=== PATIENT | male | born 1960 | race Caucasian/White ===

== ENCOUNTER → 2018-02-20 12:19 | Outpatient (CLI) | payer OTHER, SELFPAY ==
--- NOTE | 2018-02-20 | DI.RAD.S_ITS ---
PROCEDURE: FL WRIST INJECTION MR/CT LT INDICATIONS: BILATERAL WRIST PAIN TECHNIQUE: After informed consent had been obtained, the wrist was examined fluoroscopically, and a site chosen for injection of the radiocarpal compartment from a dorsal approach. Skin was prepped and draped in a sterile fashion and 1% lidocaine infiltrated from the skin down to the articular surface. A hypodermic needle was then introduced into the articular space and a modest amount of contrast medium was instilled confirming intra-articular needle tip placement. This was followed by approximately 4 mL of a dilute gadolinium solution. Needle was removed and dressing was applied. The patient experienced no complications throughout the procedure and left the fluoroscopic suite in no apparent distress. FINDINGS: A single fluoroscopic spot image demonstrates intra-articular location to injected iodinated contrast. IMPRESSION: Successful fluoroscopic-guided administration of dilute Gadolinium solution for wrist MR arthrogram. Dictated by: Shashank Nuñez M.D. on 02/20/2018 at 15:06 Approved by: Shashank Nuñez M.D. on 02/20/2018 at 15:07
--- NOTE | 2018-02-20 | DI.RAD.S_ITS ---
PROCEDURE: FL WRIST INJECTION MR/CT RT INDICATIONS: BILATERAL WRIST PAIN TECHNIQUE: After informed consent had been obtained, the wrist was examined fluoroscopically, and a site chosen for injection of the radiocarpal compartment from a dorsal approach. Skin was prepped and draped in a sterile fashion and 1% lidocaine infiltrated from the skin down to the articular surface. A hypodermic needle was then introduced into the articular space and a modest amount of contrast medium was instilled confirming intra-articular needle tip placement. This was followed by approximately 4 mL of a dilute gadolinium solution. Needle was removed and dressing was applied. The patient experienced no complications throughout the procedure and left the fluoroscopic suite in no apparent distress. FINDINGS: A single fluoroscopic spot image demonstrates intra-articular location to injected iodinated contrast. IMPRESSION: Successful fluoroscopic-guided administration of dilute Gadolinium solution for wrist MR arthrogram. Dictated by: Shashank Nuñez M.D. on 02/20/2018 at 15:05 Approved by: Shashank Nuñez M.D. on 02/20/2018 at 15:06
--- NOTE | 2018-02-20 | DI.MRI.S_ITS ---
PROCEDURE: MR WRIST RT W CON INDICATIONS: BILATERAL WRIST PAIN TECHNIQUE: After the administration of 3-4 mL of dilute intra-articular Gadolinium contrast into the radiocarpal compartment, coronal T1 spin echo with fat saturation and T2 fast spin echo with fat saturation, axial T1 spin echo and T2 fast spin echo with fat saturation, sagittal T1 spin echo with and without fat saturation through the wrist. COMPARISON: None. FINDINGS: Image quality: Excellent. Bones and cartilage: The carpal bones are normally aligned. No bone marrow contusions or fractures. No evidence for avascular necrosis. Overlying cartilage surfaces appear normal. Moderate osteoarthritic degenerative changes noted in the first CMC joint. Mild osteoarthritic degenerative changes noted in the triscaphe joint. Carpal ligaments: The scapholunate torn with widening of the scapholunate interval and gadolinium extravasation into the mid-carpal compartment. 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 The lunotriquetral ligament is intact. The radioscaphocapitate and radiolunotriquetral ligaments appear intact. The arcuate ligament and short radiolunate ligament also appear normal. The dorsal intercarpal and radiotriquetral ligaments appear intact. On sagittal images, the pisohamate ligament appears intact. Triangular fibrocartilage complex: The triangular fibrocartilage disc, with its styloid and foveal lamina, appears intact. No gadolinium extravasation into the distal radioulnar joint. The adjacent meniscal homolog appears normal. The ulnar collateral ligament appears intact. The extensor carpi ulnaris tendon is normal in location and morphology. Tendons and soft tissues: The carpal tunnel structures appear normal, including the median nerve. The ulnar nerve appears normal within Guyon's canal. All six extensor tendon compartments demonstrate normal morphology, without pathologic tendon sheath fluid. No soft tissue ganglion cysts. IMPRESSION: 1. Tear of the scapholunate ligament. 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 2. Moderate CMC joint osteoarthritis. Dictated by: Myrna Jones MD, PhD on 02/20/2018 at 17:06 Approved by: Myrna Jones MD, PhD on 02/20/2018 at 21:18
--- NOTE | 2018-02-20 | DI.MRI.S_ITS ---
PROCEDURE: MR WRIST LT W CON INDICATIONS: LEFT WRIST PAIN TECHNIQUE: After the administration of 3-4 mL of dilute intra-articular Gadolinium contrast into the radiocarpal compartment, coronal T1 spin echo with fat saturation and T2 fast spin echo with fat saturation, axial T1 spin echo and T2 fast spin echo with fat saturation, sagittal T1 spin echo with and without fat saturation through the wrist. COMPARISON: None. FINDINGS: Image quality: Excellent. Bones and cartilage: The carpal bones are normally aligned. No bone marrow contusions or fractures. No evidence for avascular necrosis. Overlying cartilage surfaces appear normal. Severe osteoarthritic degenerative changes noted in the first CMC joint. Mild osteoarthritic degenerative changes noted in the triscaphe joint. Carpal ligaments: The scapholunate ligament is torn with widening of the scapholunate interval and extension of contrast in the midcarpal row. No proximal migration of the capitate identified in the current study. The lunotriquetral ligament appear intact. The radioscaphocapitate and radiolunotriquetral ligaments appear intact. The arcuate ligament and short radiolunate ligament also appear normal. The dorsal intercarpal and radiotriquetral ligaments appear intact. On sagittal images, the pisohamate ligament appears intact. Triangular fibrocartilage complex: The central triangular fibrocartilage disc appears intact however the styloid attachment is not well-seen suggestive of a tear. There is a distal radioulnar joint effusion with small amount of gadolinium within the joint space. The adjacent meniscal homolog appears torn. The ulnar collateral ligament appears intact. The extensor carpi ulnaris tendon is normal in location and morphology, however there is contrast within the tendon sheath indicating indication with the radiocarpal joint likely related to a tear of the ulnar aspect triangular fibrocartilage complex. Tendons and soft tissues: The carpal tunnel structures appear normal, including the median nerve. The ulnar nerve appears normal within Guyon's canal. All six extensor tendon compartments demonstrate normal morphology, without pathologic tendon sheath fluid. No soft tissue ganglion cysts. IMPRESSION: 1. Scapholunate ligament tear. No evidence of SLAC wrist identified in the current study. 2. Probable tear of the ulnar components of the ulnar components of the triangular fibrocartilage complex. 3. Severe first CMC joint osteoarthritis. Dictated by: Myrna Jones MD, PhD on 02/20/2018 at 17:08 Approved by: Myrna Jones MD, PhD on 02/20/2018 at 21:11
== END ==
PROVIDERS: PCP Family Medicine; Visit Provider Orthopaedic Surgery
DX: S63.591A Other specified sprain of right wrist, initial encounter (principal); S63.592A Other specified sprain of left wrist, initial encounter; M18.0 Bilateral primary osteoarthritis of first carpometacarpal joints; M25.531 Pain in right wrist; M25.532 Pain in left wrist
CPT/HCPCS: 20605; 73222; 76000; 77002

== ENCOUNTER → 2021-06-22 16:33 | Outpatient (CLI) | payer OTHER, SELFPAY ==
--- NOTE | 2021-06-22 16:38 | DI.RAD.S_ITS ---
PROCEDURE: XR SHOULDER RT MIN 2V INDICATIONS: fall on R shoulder, R shoulder dislocation x4 today TECHNIQUE: 3 views of the shoulder were acquired. COMPARISON: None. FINDINGS: Bones: No fractures or dislocations. No suspicious bony lesions. Visualized ribs appear intact. Mild periarticular osteophyte formation at the acromioclavicular and glenohumeral joints. Soft tissues: No suspicious soft tissue calcifications. IMPRESSION: Osteoarthritis. No acute fracture. No osseous lesion. If symptoms and/or clinical suspicion for pathology persist, further assessment with repeat, or advanced imaging (e.g., CT, MRI, or bone scan) may be helpful for further assessment. Dictated by: Vincent Smyth M.D. on 06/22/2021 at 16:54 Approved by: Vincent Smyth M.D. on 06/22/2021 at 16:54
== END ==
PROVIDERS: PCP Family Medicine; Referring Provider Physician Assistant; Visit Provider Physician Assistant
DX: S49.91XA Unspecified injury of right shoulder and upper arm, initial encounter (principal); M19.011 Primary osteoarthritis, right shoulder; X58.XXXA Exposure to other specified factors, initial encounter
CPT/HCPCS: 73030

== ENCOUNTER → 2021-08-16 08:40 | Outpatient (CLI) | payer OTHER, SELFPAY ==
--- NOTE | 2021-08-16 | DI.RAD.S_ITS ---
PROCEDURE: FL SHOULDER INJECTION MR/CT RT INDICATIONS: Dislocation of right shoulder joint COMPARISON: None. TECHNIQUE: The indications, alternatives, benefits, risks, and complications of the procedure were explained to the patient. Written informed consent was obtained and placed in the chart. The shoulder was examined fluoroscopically and a site for needle placement chosen for entry into the glenohumeral joint from an anterior approach. The skin was prepped and draped in a sterile fashion, and 1% lidocaine infiltrated from skin down to joint capsule. A spinal needle was inserted into the glenohumeral joint, and a small amount of iodinated contrast media injected to confirm intra-articular placement of the needle tip. This was followed by approximately 12 mL dilute solution of a gadolinium containing MR contrast agent. The needle was removed and a dressing was applied. The patient was given postprocedural instructions and sent to the MR suite for MR imaging. FINDINGS: A single fluoroscopic spot image demonstrates intra-articular location of injected iodinated contrast. IMPRESSION: Successful fluoroscopically guided administration of dilute Gadolinium solution into the shoulder joint for MR arthrogram. Dictated by: Judah Zarco M.D. on 08/16/2021 at 10:02 Approved by: Judah Zarco M.D. on 08/16/2021 at 10:03
--- NOTE | 2021-08-16 | DI.MRI.S_ITS ---
PROCEDURE: MR SHOULDER RT W CON INDICATIONS: Dislocation of right shoulder joint TECHNIQUE: After the administration of 12 mL of dilute intra-articular Gadolinium contrast, oblique coronal T1 and T2 spin echo with fat saturation, oblique sagittal T1 spin echo with and without fat saturation, oblique sagittal T2 fast spin echo with fat saturation, axial T1 spin echo with fat saturation through the shoulder. COMPARISON: [facility], CR, XR SHOULDER RT MIN 2V, 06/22/2021, 16:35. FINDINGS: Image quality: Excellent. Rotator cuff: Moderate supraspinatus tendinopathy with interstitial tears. Mild infraspinatus tendinopathy with small partial articular surface tear (8-8). Mild subtalar tendinopathy with interstitial tear. No rotator cuff muscle atrophy on sagittal images. Bones and bursae: Patchy T2 hyperintense signal with flattening of the humeral head, concerning for Hill-Sachs deformity/contusion. Moderate to advanced acromioclavicular joint degeneration with T2 hyperintense signal within the articulation. No os acromiale. Capsule and soft tissues: Superior labral tear, which extends in the anterior-posterior direction. Oblique signal within the posterior, inferior labrum, compatible with labral tear (5-14). The long head of the biceps tendon demonstrates normal location and morphology. A 1.2 x 0.5 cm body is seen within the tendon sheath. The rotator interval appears normal, without fibrosis. The coracohumeral ligament is of normal thickness. IMPRESSION: 1. Superior and posterior inferior labral tears as detailed above. 2. Hill-Sachs deformity. 3. Moderate supraspinatus tendinopathy with interstitial tears. 4. Mild infraspinatus tendinopathy with small partial articular surface tear. 5. Body within the biceps tendon sheath. 6. Moderate to advanced AC joint degeneration. Dictated by: Eladio Mckee M.D. on 08/16/2021 at 10:11 Approved by: Eladio Mckee M.D. on 08/16/2021 at 10:17
== END ==
PROVIDERS: PCP Family Medicine; Referring Provider Orthopaedic Surgery; Visit Provider Orthopaedic Surgery
DX: S43.004A Unspecified dislocation of right shoulder joint, initial encounter (principal); S46.011A Strain of muscle(s) and tendon(s) of the rotator cuff of right shoulder, initial encounter; S43.431A Superior glenoid labrum lesion of right shoulder, initial encounter; M19.011 Primary osteoarthritis, right shoulder; X58.XXXA Exposure to other specified factors, initial encounter
CPT/HCPCS: 23350; 73222; 77002

== ENCOUNTER → 2022-03-19 08:34 | Outpatient (CLI) | payer OTHER, SELFPAY | PROVIDERS: PCP Family Medicine; Visit Provider Student in an Organized Health Care Education/Training Program | DX: R30.0 Dysuria (principal) | CPT/HCPCS: 87086 ==